=== PATIENT | female | born 1990 | race American Indian/Alaskan Native ===

== ENCOUNTER 2019-04-12 18:43 | Emergency (ER) | payer MEDICAID ==
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
[2019-04-12] MEDS ORDERED: IBUPROFEN PO ONE (20:58)
[2019-04-12] MEDS ORDERED: TYLENOL PO ONE (20:58)
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
[2019-04-12 21:50] VITALS: BP 116/82
== END 2019-04-12 21:49 | disposition home or self-care (01) ==
LOC: ED 18:43
DX: S43.401A Unspecified sprain of right shoulder joint, initial encounter (principal); M62.830 Muscle spasm of back; M62.838 Other muscle spasm; Z79.899 Other long term (current) drug therapy; V49.49XA Driver injured in collision with other motor vehicles in traffic accident, initial encounter; Y93.89 Activity, other specified; Y92.488 Other paved roadways as the place of occurrence of the external cause; Y99.8 Other external cause status
CPT/HCPCS: 72040; 72100